=== PATIENT | male | born 1945 | race Hispanic/Latino ===

== ENCOUNTER → 2019-10-09 | Outpatient (CLI) | payer MEDICARE | END | disposition home or self-care (01) | LOC: RAH 12:52 | PROVIDERS: ATTEND Orthopaedic Surgery | DX: M19.012 Primary osteoarthritis, left shoulder (principal); M75.102 Unspecified rotator cuff tear or rupture of left shoulder, not specified as traumatic; M62.512 Muscle wasting and atrophy, not elsewhere classified, left shoulder; M75.42 Impingement syndrome of left shoulder | CPT/HCPCS: 73221 ==

== ENCOUNTER → 2020-05-02 | Outpatient (CLI) | payer OTHER, MEDICARE ==
[~2020-05-02] MED LIST: CEPH500B PO; HYDR-4457 PO; LEVE750T10 PO; MECL-160 PO; MELO-106 PO; SIMV-46 PO
== END | disposition home or self-care (01) ==
LOC: RAH 10:00
PROVIDERS: ATTEND Internal Medicine Cardiovascular Disease
DX: K21.9 Gastro-esophageal reflux disease without esophagitis (principal); E78.5 Hyperlipidemia, unspecified
CPT/HCPCS: 93306; 93356

== ENCOUNTER 2020-05-06 16:00 | Observation (INO) | payer OTHER, MEDICARE ==
[~2020-05-06] VITALS: Ht 162.6 cm; Wt 64.3 kg
[2020-05-06 10:22] LABS: BASOPHILS % (AUTO) 2.5 % (0.0-5.0); EOSINOPHILS % (AUTO) 0.2 % (0.0-8.0); HEMATOCRIT 31.4 % (42-54); MEAN CORPUSCULAR HEMOGLOBIN 28.5 pg (27.0-33.0); MEAN CORPUSCULAR HGB CONC 32.2 g/dL (32.0-36.0); MEAN CORPUSCULAR VOLUME 88.7 fL (79-99); MONOCYTES % (AUTO) 8.4 % (3.0-13.0); NEUTROPHILS % (AUTO) 51.1 % (40.0-77.0); NUCLEATED RED BLOOD CELLS 2.4 % (0.0-0.19); PLATELET COUNT (AUTO) 347 K/uL (130-400); RED BLOOD CELL COUNT(AUTO) 3.54 MIL/uL (4.50-6.20); RED CELL DISTRIBUTION WIDTH 19.4 % (11.0-15.5)
[2020-05-06 10:33] LABS: BILIRUBIN,URINE Negative (NEGATIVE); COLOR,URINE Yellow (YELLOW); GLUCOSE, URINE (UA) Negative (NEGATIVE); KETONES,URINE Negative (NEGATIVE); LEUKOCYTE ESTERASE ,URINE Trace (NEGATIVE); NITRATE,URINE Negative (NEGATIVE); OCCULT BLOOD,URINE Negative (NEGATIVE); PROTEIN,URINE Trace mg/dL (NEGATIVE)
[2020-05-06 10:35] LABS: APPEARANCE,URINE CLEAR (CLEAR)
[2020-05-06 10:40] LABS: CREATININE 1.2 mg/dL (0.5-1.5); POTASSIUM 4.1 mmol/L (3.5-5.1)
[2020-05-06 10:42] LABS: INR 1.02 (0.85-1.15)
[2020-05-06 10:44] LABS: RBC,URINE None Seen /HPF (0-1)
[2020-05-06 10:45] LABS: BACTERIA,URINE Few /HPF (None Seen); MUCUS,URINE Moderate LPF (None Seen); WBC,URINE 0-1 /HPF (0-1)
--- NOTE | 2020-05-10 16:54 | NUR ---
LABS ABNORMAL UA, WBC REPORTED TO DR. JACKSON. FURTHER ORDERS GIVEN AND WILL BE CARRIED OUT
[2020-05-13] VITALS (21 sets, daily range): BP systolic 105–145; BP diastolic 59–78
[2020-05-13] MEDS: CEFAZOLIN SODIUM 1 GM VIAL IVP SCH ×2 (05:00→17:15)
[2020-05-13] MEDS ORDERED: GENTAMICIN SULFATE 240 MG in SODIUM CHLORIDE 0.9% 100 ML IV SCH (06:00)
[2020-05-13] MEDS ORDERED: LACTATED RINGERS 1000ML 1,000 ML IV ONE (08:29)
[2020-05-13] MEDS ORDERED: SIMV-46 PO (08:42)
[2020-05-13] MEDS ORDERED: MELO-106 PO (08:42)
[2020-05-13] MEDS ORDERED: MECL-160 PO (08:42)
[2020-05-13] MEDS ORDERED: LEVE750T10 PO (08:42)
--- NOTE | 2020-05-13 09:03 | NUR ---
SX SCD APPLIED TO BLE, SEIZURE PRECAUTIONS PADS APPLIED TO SIDERAILS IN BED
[2020-05-13] MEDS ORDERED: CEFAZOLIN SODIUM 1 GM VIAL ONE (13:26)
[2020-05-13] MEDS ORDERED: TRANEXAMIC ACID 1000MG/10ML ONE (13:30)
[2020-05-13] MEDS ORDERED: LIDOCAINE PF 2% 5ML ABBOJECT ONE (13:35)
[2020-05-13] MEDS ORDERED: ONDANSETRON HCL 4 MG/2 ML VIAL ONE (13:35)
[2020-05-13] MEDS ORDERED: FENTANYL CITRATE PF 50 MCG/1 ML 5ML AMP IV ONE (13:36)
[2020-05-13] MEDS ORDERED: PROPOFOL 10 MG/ML 20ML VIAL IV ONE (13:36)
[2020-05-13] MEDS ORDERED: MIDAZOLAM HCL 1 MG/ML 2ML VIAL ONE (13:36)
[2020-05-13] MEDS ORDERED: ROCURONIUM 10MG/1ML SYR 10 MG/ML ML ONE ×2 (13:36→17:36)
[2020-05-13] MEDS ORDERED: ROPIVACAINE 0.5% 5MG/ML 30ML IJ ONE (13:46)
[2020-05-13] MEDS ORDERED: LIDOCAINE 1%-EPI 1:100,000 20 ML VIAL IJ ONE (13:46)
[2020-05-13] MEDS ORDERED: DEXAMETHASONE SOD PHOSPHATE 10MG/ML 1ML VIAL ONE ×2 (13:47→13:48)
[2020-05-13] MEDS ORDERED: FENTANYL CITRATE PF 50 MCG/1 ML 2ML VIAL ONE (15:16)
[2020-05-13] MEDS ORDERED: EPHEDRINE SULFATE 50 MG/ML AMPULE ONE (16:29)
[2020-05-13] MEDS ORDERED: CEFAZOLIN SODIUM 1 GM VIAL IRRIG ONE (17:37)
[2020-05-13] MEDS ORDERED: CEPH500B PO (18:31)
[2020-05-13] MEDS ORDERED: HYDR-4457 PO (18:31)
--- NOTE | 2020-05-13 19:48 | NUR ---
NOTE 1926 RECEIVED REPORT FORM PACU VIA PHONE. 1947 PATIENT ARRIVED TO ROOM VIA BED. VITAL SIGNS TAKEN, PATIENT AAOX3 AND REPORTS 0 PAIN OR OTHER DISCOMFORTS. DOES REPORT NUMBNESS TO LEFT ARM (OPERATED ARM/SHOULDER) AND HAS A SLING IN THIS ARM. PROVIDED SOME ICE CHIPS AND ENCOURAGE TO TAKE SIPS OF WATER.
--- NOTE | 2020-05-13 21:48 | NUR ---
NOTE PATIENT HAS STABLE VITAL SIGNS, HAS RECEIVED SANDWICH TRAY AND TAKING FLUIDS WITHOUT PROBLEMS. 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 PATIENT DIRECTED ME TO CALL ATA ALATORRE (FRIEND AND HIS PROVIDER) TO SEE IF SHE CAN COME TO PICK HIM UP.
--- NOTE | 2020-05-13 22:20 | NUR ---
NOTE 2147 CONTACTED ATA ALATORRE AND SHE SAID THAT SHE WILL COME FOR HIM. LIVES IN [place]. MY PHONE NUMBER WAS GIVEN TO HER TO CALL ONCE SHE ARRIVED TO ED ENTRANCE. 2219 PATIENT WALKED INDEPENDENTLY WITH STEADY GAIT WITH STANDBY ASSISTANCE BY PLASTICS PRODUCTION MACHINE OPERATOR. KEEPING SLING IN PROPER POSITION. DENIES ANY DIZZINESS OR OTHER DISCOMFORTS. ONCE BACK IN ROOM REVIEWED WITH HIM THE DISCHARGE INSTRUCTION PACKET, TEACH BACK DONE. HE DID DISCUSSED SOME OF THE INFORMATION REVIEWED, BUT ALSO SAID THAT HE DOES NOT KNOW HOW TO READ/WRITE. HE USUALLY WRITES HIS INITIALS AND THAT IS WHAT HE DID ON FORMS. INQUIRED ABOUT WHO CAN READ HIM OR GET HELP FROM AND HE SAID THAT ATA ALATORRE. WILL CONTACT HER WHEN SHE COMES TO PICKUP PATIENT.
--- NOTE | 2020-05-13 22:30 | NUR ---
NOTE 2225 REMOVED IV AND PATIENT IS AWAITING RIDE. HE SAYS HE THINKS HIS CLOTHES AND BELONGING WERE TAKEN BY HER PROVIDER. 223 RECEIVING CALL BY A WOMAN IDENTIFYING HERSELF SISTER OF ATA AND SHE CAME TO [facility] UP PATIENT AND BROUGHT HIM HIS CLOTHES. INSTRUCTED HER TO LEAVE AT [facility] IN EMERGENCY DEPT AND A STAFF MEMBER WILL GO MAILMASTER THERE. EXPLAINED TO HER THAT INSTRUCTION PACKET WAS GIVEN TO PATIENT AND HE WANTED FOR ATA TO READ AND HELP HIM WITH IT. SHE SAID SHE WILL TELL HER. 224 PATIENT ASSISTED WITH DRESSING BY EUGENE AND THEN WAS TAKEN TO ED ENTRANCE TO TAKE HIS RIDE.
--- NOTE | 2020-05-13 23:36 | NUR ---
NOTE 2326 RECEIVED CALL FROM ATA TO INQUIRE ABOUT PATIENT'S WALLET. SHE SAYS SHE PLACED IT IN POCKET OF HIS PANTS THAT WERE BROGHT TO HIM, BUT NOW HE DOES NOT HAVE IT. CHECKED ROOM THAT UNHAIRER IS CURRENTLY FINISHING TO CLEAN AND SAID SHE DID NOT SEE ANY BELONGINGS OR WALLET IN ROOM. INFORMED THIS TO ATA. INQUIRED IF SHE CHECKED IN THEIR CAR WHERE HE TRAVELED. SAYS SHE WILL CHECK AND WILL CALL ME BACK AFTERWARDS. 2336 ATA CALL BACK AND SAID SHE HAS FOUND THE WALLET. ALSO SPOKE WITH HER ABOUT DISCHARGE PACKET. SAYS SHE HAS STARTED TO REVIEW IT. REVIEWED WITH HER VERBALLY THE INSTRUCTIONS OF CALLING TOMORROW TO SCHEDULE APPOINTMENT, THE USE OF SLING AND DRESSING CARE, PATIENT CAN SHOWER, BUT TAKE CARE THAT DRESSING IS NOT SCRUBBED OR REMOVED UNTIL APPOINTMENT AT OFFICE. SHE ACKNOWLEDGED UNDERSTANDING AND WILL CONTINUE TO REVIEW THE REST OF THE PACKET SHE STATED.
== END 2020-05-13 22:40 | disposition home or self-care (01) ==
LOC: INTOOBSV 05-13 07:25 → DAHIP 05-13 07:25 → 3BH 05-13 19:24
PROVIDERS: ADMIT Orthopaedic Surgery; ATTEND Orthopaedic Surgery
DX: M75.121 Complete rotator cuff tear or rupture of right shoulder, not specified as traumatic (principal); Z20.828 Contact with and (suspected) exposure to other viral communicable diseases; E78.5 Hyperlipidemia, unspecified; M81.0 Age-related osteoporosis without current pathological fracture; G43.909 Migraine, unspecified, not intractable, without status migrainosus; Z79.899 Other long term (current) drug therapy
CPT/HCPCS: 23412; 36415; 73030; 80048; 81001; 85025; 85610; 87641; 96361; 96365; A4215; A4216; A4221; A4222; A4223 ×3; A4565; A4600; A4606; A4649 ×2; A4663; A4930; A5120; A6206; C1713 ×2; G0378 ×12; J0690 ×5; J1100 ×2; J1580; J2001; J2405; J2704; J2795; J3010 ×2; J3490 ×3; J7030; J7120; U0003; J2250